=== PATIENT | female | born 1990 | race Caucasian/White ===

== ENCOUNTER 2020-04-30 09:13 | Emergency (ER) | payer OTHER, SELFPAY ==
[2020-04-30 09:20] VITALS: BP 122/88; PULSE 82; RESP 16; TEMP 36.6; O2SAT 100
--- NOTE | 2020-04-30 09:34 | ED.BACK ---
HPI - Back Pain/Injury General Chief Complaint: Back Pain/Injury Stated Complaint: Back pain Time Seen by Provider: 04/30/20 09:22 History of Present Illness HPI Narrative: Low back pain since about 3 AM. Started when she got out of bed. Worse with laying flat. No weakness, numbness, fever, urinary symptoms. SHe had similar pain a few weeks ago as well. Related Data Allergies Allergy/AdvReac Type Severity Reaction Status Date / Time No Known Allergies Allergy Mild Verified 04/30/20 09:34 Review of Systems Review of Systems: All systems reviewed & are unremarkable except as noted in HPI and below Constitutional: Constitutional: Denies chills and Denies fever(s) Cardiovascular: Cardiovascular: Denies chest pain Respiratory: Respiratory: Denies dyspnea Gastrointestinal: Gastrointestinal: Denies nausea Genitourinary: Genitourinary: Denies hematuria, Denies nocturia, Denies dysuria and Denies flank pain Musculoskeletal: Musculoskeletal: Reports back pain Neurologic: Denies numbness and Denies weakness Exam Const: General: healthy appearing, no acute distress and alert Orientation/consciousness: patient oriented x3 HENMT: Head: normal to inspection Neck: Neck: normal visual inspection and no lymphadenopathy Chest: Chest palpation & inspection: no tenderness Resp: Effort & Inspection: normal respiratory effort Auscultation: clear to auscultation bilaterally, no rales, no rhonchi and no wheezes Cardio: Jugular venous distension: no JVD Rate: regular rate Rhythm: regular rhythm Heart sounds: no murmurs GI: Inspection: non-distended GI Palp: Yes Soft to palpation and No Tenderness to palpation present (GI) Back/Spine/Pelvis: Other: Diffuse muscular tenderness in the lumbar spine Skin: General skin exam: normal color Neuro: General: patient oriented x3 and moves all extremities Speech: normal speech Extrem: General: no edema Psych: Appearance: well kempt Affect: normal affect Course Vital Signs Vital signs: Vital Signs Temperature 36.6 C 04/30/20 09:20 Pulse Rate 82 04/30/20 09:20 Respiratory Rate 16 04/30/20 09:20 Blood Pressure 122/88 04/30/20 09:20 Pulse Oximetry 100 04/30/20 09:20 Temperature 36.6 C 04/30/20 09:20 Pulse Rate 80 04/30/20 11:05 Respiratory Rate 16 04/30/20 11:05 Blood Pressure 121/74 04/30/20 11:05 Pulse Oximetry 98 04/30/20 11:05 MDM - Back Pain/Injury MDM Narrative Medical decision making narrative: She has muscular low back pain without significnat red flag symptoms or risk factors indicating imaging. Discharge Plan Discharge Clinical Impression: Strain of lumbar region Qualifiers: Encounter type: initial encounter Qualified Code(s): S39.012A - Strain of muscle, fascia and tendon of lower back, initial encounter Patient Disposition: Home, Self-Care Condition: Stable Instructions: Low Back Strain (ED) Prescriptions: New cyclobenzaprine 10 mg tablet 10 mg PO TID PRN (Reason: muscle spasm) Qty: 20 RF: 0 naproxen 500 mg tablet 500 mg PO BID PRN (Reason: pain) Qty: 20 RF: 0 Follow-up/Referrals: Fer,NEFTALY De Souza [Primary Care Provider] - Discharge Date/Time: 04/30/20 11:05
[2020-04-30] MEDS: KETOROLAC (*BKC) 60 MG/2 ML VIAL IM (09:58)
[2020-04-30 11:05] VITALS: BP 121/74; PULSE 80; RESP 16; O2SAT 98
== END 2020-04-30 11:05 | disposition home or self-care (01) ==
PROVIDERS: Emergency Provider Emergency Medicine; PCP Physician Assistant
DX: S39.012A Strain of muscle, fascia and tendon of lower back, initial encounter (principal); X58.XXXA Exposure to other specified factors, initial encounter
CPT/HCPCS: 96372; 99284; J1885; J3360

== ENCOUNTER 2022-05-25 14:01 | Emergency (ER) | payer OTHER, SELFPAY | END 2022-05-25 15:00 | disposition left against medical advice (07) | LOC: ANHED 15:27 | PROVIDERS: PCP Physician Assistant | DX: Z53.21 Procedure and treatment not carried out due to patient leaving prior to being seen by health care provider (principal) | CPT/HCPCS: 99199 ==

== ENCOUNTER 2024-03-01 00:14 | Emergency (ER) | payer OTHER, SELFPAY ==
--- NOTE | ~2024-03-01 | XR_ITS ---
EXAMINATION: XR chest 1V portable DATE: 03/01/2024 01:22 INDICATION: Chest pressure. TECHNIQUE: A single frontal view of the chest was obtained. COMPARISON: Chest 2 views 02/10/2009 FINDINGS: There is no pneumonia, pleural effusion, or pneumothorax. The heart size is normal. IMPRESSION: 1. No acute cardiopulmonary disease. Reviewed, dictated and finalized at location A.
[2024-03-01 00:16] VITALS: BP 144/82; PULSE 88; RESP 15; TEMP 36.8; O2SAT 100
--- NOTE | 2024-03-01 00:47 | ED.GENADULT ---
HPI - General Adult General Chief complaint: Unspecified Stated complaint: chest pressure and lumps on back of neck Time Seen by Provider: 03/01/24 00:22 Source: patient Mode of arrival: ambulatory Limitations: no limitations History of Present Illness HPI narrative: This is a 33 year old female who presents to the ED with chief complaint of chest pressure and fatigue. Patient reports some pleuritic pain with deeper breathing. States that this has been going on for the past couple of days. She reports she takes ibuprofen and feels a lot better but it only lasts for few hours. She reports that she and her kids were sick a couple of weeks ago but she thought she was getting better from that. Reports occasional dry cough but nothing significant. She has secondary complaint of some lumps that she has noticed at the back of her neck. Denies significant pain with these but they just annoying. Denies any injuries. Denies fevers, chills, abdominal pain, nausea, vomiting, urinary symptoms or troubles with bowel movements. Related Data Allergies Allergy/AdvReac Type Severity Reaction Status Date / Time No Known Allergies Allergy Mild Verified 03/01/24 00:19 Review of Systems Review of Systems: All systems as dictated in HPI Exam Narrative: GENERAL: Well-appearing, well-nourished, and in no acute distress. HEAD: Normocephalic, atraumatic. EYES: PERRLA and EOMI. ENT: Nares clear, no rhinorrhea or epistaxis. Mucous membranes moist. Oropharynx without tonsillar hypertrophy exudate or other lesions. NECK: Supple. Posterior cervical chain lymph nodes felt, primarily on the left. CHEST: No respiratory distress. Clear to auscultation. No wheezes rales or rhonchi. 100% room air. HEART: Regular rate and rhythm. No murmur heard. Normal peripheral pulses. ABDOMEN: Soft, nontender, nondistended, normal active bowel sounds. MSK: Normal range of motion. No edema. SKIN: Warm, dry, no rash. NEURO: Alert and oriented x3. No focal deficits. PSYCH: Normal mood and affect. Course Vital Signs Vital signs: Vital Signs Temperature 98.2 F 03/01/24 00:16 Pulse Rate 88 03/01/24 00:16 Respiratory Rate 15 03/01/24 00:16 Blood Pressure 144/82 H 03/01/24 00:16 Pulse Oximetry 100 03/01/24 00:16 Oxygen Delivery Room Air 03/01/24 00:16 Temperature 98.2 F 03/01/24 00:16 Pulse Rate 79 03/01/24 01:41 Respiratory Rate 15 03/01/24 00:16 Blood Pressure 144/82 H 03/01/24 00:16 Pulse Oximetry 100 03/01/24 01:41 Oxygen Delivery Room Air 03/01/24 00:16 Medical Decision Making MDM Narrative Medical decision making narrative: This is a 33-year-old female who presents to the ED for chief complaint of general fatigue, chest pressure after recent viral illness. Vitals are normal. Exam is benign. Lab work shows leukopenia, consistent with viral syndrome. CMP remarkable for mild dehydration but otherwise normal. Troponin normal. ECG shows sinus rhythm with no acute ischemic findings. Chest x-ray is normal. Discussed with patient that her workup was reassuring overall. Symptoms consistent with postviral syndrome. Pt will be discharged in stable condition. Return precautions given and supportive measures discussed. Pt is understanding and agreeable with plan for discharge and follow-up with PCP. Vital Signs Vital Signs: Vital Signs Temperature 98.2 F 03/01/24 00:16 Pulse Rate 88 03/01/24 00:16 Respiratory Rate 15 03/01/24 00:16 Blood Pressure 144/82 H 03/01/24 00:16 Pulse Oximetry 100 03/01/24 00:16 Oxygen Delivery Room Air 03/01/24 00:16 Temperature 98.2 F 03/01/24 00:16 Pulse Rate 79 03/01/24 01:41 Respiratory Rate 15 03/01/24 00:16 Blood Pressure 144/82 H 03/01/24 00:16 Pulse Oximetry 100 03/01/24 01:41 Oxygen Delivery Room Air 03/01/24 00:16 Lab Data 03/01/24 01:39 03/01/24 01:39 Labs: Lab Results 03/01/24 Range/
--- NOTE | 2024-03-01 00:54 | ECG_ITS ---
SEE SCANNED COPY FOR CONFIRMED REPORT. MTDD
[2024-03-01 01:41] VITALS: PULSE 79; O2SAT 100
[2024-03-01 01:44] LABS: Basophils Percent Auto 0.3 % (0.2-1.2); Eosinophils Absolute Auto 0.3 K/mm3 (0-0.3); Eosinophils Percent Auto 9.1 % (0-4.4); Hematocrit 39.3 % (37.0-47.0); Hemoglobin 13.2 g/dL (12.0-15.0); Immature Granulocyte Absolute 0.01 K/mm3 (0.00-0.031); Immature Granulocyte Percent A 0.3 % (0-0.5); Lymphocytes Absolute Auto 0.51 K/mm3 (0.9-3.2); Lymphocytes Percent Auto 17.2 % (18.3-44.2); Mean Corpuscular HGB Conc 33.6 g/dl (32-36); Mean Corpuscular Hemoglobin 30.2 pg (26-34); Mean Corpuscular Volume 89.9 fl (80-100); Mean Platelet Volume 10.2 fl (7.4-10.4); Monocytes Absolute Auto 0.4 K/mm3 (0.1-0.6); Monocytes Percent Auto 12.2 % (2.6-8.5); Neutrophils Absolute Auto 1.8 K/mm3 (1.3-6.7); Neutrophils Percent Auto 60.9 % (45.5-73.1); Platelet Count Result 164 k/mm3 (150-375); Red Blood Count 4.37 M/mm3 (4.2-5.4); Red Cell Distribution Width 11.7 % (11.5-14.5)
[2024-03-01 02:01] LABS: Alanine Aminotransferase 22 U/L (6-35); Albumin Level 4.3 g/dL (3.5-5.1); Alkaline Phosphatase 86 U/L (38-126); Anion Gap 9 mmol/L (4-12); Aspartate Amino Transferase 28 U/L (14-36); Bilirubin,Total 0.4 mg/dL (0.2-1.3); Blood Urea Nitrogen 21 mg/dL (7-17); Calcium 8.5 mg/dL (8.4-10.2); Carbon Dioxide 18 mmol/L (22-30); Chloride 111 mmol/L (98-107); Estimated CRCL calculation 128 ml/min; Estimated Glomerular Filt Rate > 60; Glucose 103 mg/dL (65-110); Potassium 3.8 mmol/L (3.4-5.0); Sodium 138 mmol/L (137-145)
[2024-03-01 02:10] LABS: Troponin I < 0.012 ng/mL (0.000-0.034)
[2024-03-01 03:05] VITALS: BP 116/82; PULSE 82; RESP 15; O2SAT 100
== END 2024-03-01 03:06 | disposition home or self-care (01) ==
PROVIDERS: Emergency Provider Physician Assistant; PCP Physician Assistant
DX: G93.31 Postviral fatigue syndrome (principal); R94.31 Abnormal electrocardiogram [ECG] [EKG]
CPT/HCPCS: 36415; 71045; 80053; 84484; 85025; 93005; 99284